=== PATIENT | male | born 1945 | race Asian ===

== ENCOUNTER 2017-09-29 10:43 | Emergency (ER) | payer MEDICARE ==
[~2017-09-29] VITALS: Ht 170.2 cm; Wt 77.1 kg
[~2017-09-29 10:43] MED LIST: ERLO100T PO; MINO100C2 PO; TAMS0.4C34 PO; URSO300C12 PO
--- NOTE | 2017-09-29 11:06 | NUR ---
PT IS IN ROOM #2B. DR SANDOVAL EVALUATED THE PT.
[2017-09-29 11:40] LABS: BASOPHILS % (AUTO) 0.1 % (0.0-2.0); EOSINOPHILS % (AUTO) 0.1 % (0.0-7.0); HEMATOCRIT 40.1 % (36.7-47.1); HEMOGLOBIN 13.6 g/dL (12.5-16.3); LYMPHOCYTES # (AUTO) 0.3 K/uL (20.0-40.0); LYMPHOCYTES % (AUTO) 5.3 % (20.5-51.5); MEAN CORPUSCULAR HEMOGLOBIN 30.1 uug (23.8-33.4); MEAN CORPUSCULAR HGB CONC 34 g/dL (32.5-36.3); MEAN CORPUSCULAR VOLUME 88.7 fL (73.0-96.2); MONOCYTES # (AUTO) 0.5 K/uL (2.0-10.0); MONOCYTES % (AUTO) 8.7 % (0.0-11.0); NEUTROPHILS # (AUTO) 4.8 K/uL (1.8-8.9); NEUTROPHILS % (AUTO) 85.8 % (38.5-71.5); PLATELET COUNT (AUTO) 145 K/uL (152-348); RED BLOOD CELL COUNT(AUTO) 4.53 MIL/uL (4.06-5.63); WHITE BLOOD COUNT (AUTO) 5.5 K/uL (3.6-10.2)
[2017-09-29] MEDS ORDERED: OSIM80TA PO (11:40)
[2017-09-29] MEDS ORDERED: DIPH25CA83 PO (11:40)
[2017-09-29] MEDS ORDERED: GUAI600T53 PO (11:40)
[2017-09-29] MEDS ORDERED: GABA-534 PO (11:40)
[2017-09-29] MEDS ORDERED: CYAN10007 IM (11:40)
[2017-09-29] MEDS ORDERED: ZOLP5TAB8 PO (11:40)
[2017-09-29] MEDS ORDERED: LEVO1CAP4 PO (11:40)
[2017-09-29] MEDS ORDERED: CIPR-262 PO (11:40)
[2017-09-29] MEDS ORDERED: METR500T PO (11:40)
[2017-09-29 11:45] LABS: POTASSIUM 3.9 mmol/L (3.5-5.1)
[2017-09-29 11:51] LABS: BILIRUBIN,TOTAL 1.1 mg/dL (0.2-1.0); TOTAL PROTEIN, SERUM 7.2 g/dL (6.4-8.2)
--- NOTE | 2017-09-29 14:59 | NUR ---
PT WAS D/C TO HOME. D/C INSTRUCTIONS GIVEN TO THE PT BY DR SANDOVAL.
[2017-09-29 15:00] VITALS: BP 132/81
== END 2017-09-29 15:01 | disposition home or self-care (01) ==
LOC: ER 10:43
DX: J90 Pleural effusion, not elsewhere classified (principal); J18.1 Lobar pneumonia, unspecified organism; E78.5 Hyperlipidemia, unspecified; Z88.0 Allergy status to penicillin; Z85.118 Personal history of other malignant neoplasm of bronchus and lung
CPT/HCPCS: 36415; 70030-TC; 83690; 85025; 85610; 93005; A4663

== ENCOUNTER 2018-08-18 04:37 | Inpatient (IN) | payer MEDICARE ==
--- NOTE | 2018-08-17 21:00 | NUR ---
Nursing Note: Pt resting comfortably in bed. Respirations even and unlabored on O2 at 2lpm. Pt Sinus Rhythm on manager monitoring. Nephrostomy tube draining clear yellow urine on left side and continues to drain coral red blood on right side. Pt complained of severe abdominal pain. KUB done and noted to be unremarkable. Pt has dissipated at this point. Bed in low and locked position at all times. Pt requested to use restroom. Encouraged pt to use bedside commode to conserve energy. Call light in reach at all times. Will continue to monitor. Addendum: 08/19/18 at 0342 by VON CHEUNG RN Noted in ERROR
[~2018-08-18] VITALS: Ht 177.8 cm; Wt 73.9 kg
[~2018-08-18 04:37] MED LIST changes: +CIPR-262 PO; +CYAN10007 IM; +DIPH25CA83 PO; -ERLO100T PO; +GABA-534 PO; +GUAI600T53 PO; +LEVO1CAP4 PO; +METR500T PO; -MINO100C2 PO; +OSIM80TA PO; -URSO300C12 PO; +ZOLP5TAB8 PO
--- NOTE | 2018-08-18 04:55 | NUR ---
Dr. Greene at bedside for MSE.
--- NOTE | 2018-08-18 05:00 | NUR ---
Xray at bedside.
[2018-08-18] MEDS ORDERED: CYAN50TA2 PO (05:27)
[2018-08-18] MEDS ORDERED: HYDR-3326 PO (05:27)
[2018-08-18] MEDS ORDERED: DOCU-141 PO (05:28)
[2018-08-18] MEDS ORDERED: GABA-532 PO (05:29)
[2018-08-18] MEDS ORDERED: METO25TA6 PO (05:30)
[2018-08-18] MEDS ORDERED: POLY17PO4 PO (05:32)
[2018-08-18] MEDS ORDERED: SENN-167 PO (05:33)
[2018-08-18] MEDS ORDERED: TAMS0.4C34 PO (05:33)
[2018-08-18] MEDS ORDERED: VANC750F IV (05:36)
[2018-08-18] MEDS ORDERED: ZOLP10TA6 PO (05:37)
[2018-08-18 05:42] LABS: BASOPHILS % (AUTO) 0.2 % (0.0-2.0); EOSINOPHILS # (AUTO) 0.1 K/uL (0.0-0.7); EOSINOPHILS % (AUTO) 0.7 % (0.0-7.0); HEMATOCRIT 30.9 % (36.7-47.1); HEMOGLOBIN 10.3 g/dL (12.5-16.3); LYMPHOCYTES # (AUTO) 0.2 K/uL (20.0-40.0); LYMPHOCYTES % (AUTO) 1.7 % (20.5-51.5); MEAN CORPUSCULAR HEMOGLOBIN 26.7 uug (23.8-33.4); MEAN CORPUSCULAR HGB CONC 33 g/dL (32.5-36.3); MEAN CORPUSCULAR VOLUME 80.3 fL (73.0-96.2); MONOCYTES # (AUTO) 1.1 K/uL (2.0-10.0); MONOCYTES % (AUTO) 8.4 % (0.0-11.0); NEUTROPHILS # (AUTO) 11.4 K/uL (1.8-8.9); PLATELET COUNT (AUTO) 158 K/uL (152-348); RED BLOOD CELL COUNT(AUTO) 3.85 MIL/uL (4.06-5.63); WHITE BLOOD COUNT (AUTO) 12.8 K/uL (3.6-10.2)
[2018-08-18 05:51] LABS: CREATININE 1.1 mg/dL (0.6-1.3); POTASSIUM 3.1 mmol/L (3.5-5.1)
[2018-08-18 06:04] LABS: BILIRUBIN,DIRECT 0.9 mg/dL (0.0-0.2); BILIRUBIN,TOTAL 1.3 mg/dL (0.2-1.0); TOTAL PROTEIN, SERUM 6.1 g/dL (6.4-8.2)
[2018-08-18] MEDS ORDERED: POTASSIUM CHLORIDE 50 ML ONE ×2 (06:07→06:34)
[2018-08-18] MEDS ORDERED: IV NORMAL SALINE 500 ML BAG IV ONE (06:15)
[2018-08-18] MEDS: POTASSIUM CHLORIDE 50 ML IV SCH ×2 (06:17→07:15)
[2018-08-18] MEDS ORDERED: ACETAMINOPHEN ES 500 MG TABLET ONE (06:21)
[2018-08-18] MEDS ORDERED: CEFTRIAXONE 1 G VIAL ONE (06:24)
[2018-08-18] MEDS ORDERED: MORPHINE SULFATE 2 MG/1 ML DISP.SYRIN IV PRN (06:30)
[2018-08-18] MEDS ORDERED: DOCUSATE SODIUM 100 MG CAPSULE PO PRN (06:30)
[2018-08-18] MEDS ORDERED: ACETAMINOPHEN 325 MG TABLET PO ONE (06:30)
[2018-08-18] MEDS ORDERED: DEXTROSE 50% 50 ML DISP.SYRIN IV PRN (06:30)
[2018-08-18] MEDS ORDERED: ENOXAPARIN SODIUM 60 MG/0.6 ML DISP.SYRIN SQ SCH (06:30)
[2018-08-18] MEDS ORDERED: MAG HYDROX/AL HYDROX/SIMETH 30 ML LIQUID UDC PO PRN (06:30)
[2018-08-18] MEDS ORDERED: AZITHROMYCIN IV 500 MG in IV DEXTROSE 5% 250 ML IV ONE (06:30)
[2018-08-18] MEDS ORDERED: CEFTRIAXONE 1 G in IV DEXTROSE 5% 50 ML IV ONE (06:30)
[2018-08-18] MEDS ORDERED: NITROGLYCERIN 0.4 MG/TAB BOTTLE SL PRN (06:30)
[2018-08-18] MEDS ORDERED: PIPERACILLIN SODIUM/TAZOBACTAM 3.375 G in IV DEXTROSE 5% 50 ML IV ONE (06:30)
[2018-08-18] MEDS ORDERED: ACETAMINOPHEN 325 MG TABLET PO PRN (06:30)
[2018-08-18] MEDS ORDERED: AZITHROMYCIN 500 MG VIAL IV ONE (06:35)
--- NOTE | 2018-08-18 07:12 | NUR ---
Report given to Anna CARD.
--- NOTE | 2018-08-18 07:23 | NUR ---
PATIENT IS AWAKE AND ALERT WITH NO NEW COMPLAINTS. ON CONTINUOUS CARDIAC MONITORING. HE IS AWARE OF PENDING ADMISSION TO HOSPITAL.
[2018-08-18] MEDS: BLOOD SUGAR DIAGNOSTIC 1 EACH STRIP VI SCH ×4 (07:30→20:13)
[2018-08-18 08:00] VITALS: BP 114/86
--- NOTE | 2018-08-18 08:00 | NUR ---
Pt received from ER. A&Ox4. Pt stable and nad noted upon admission. IV Potassium 20MEQ (x2 bags) completed in ER.
--- NOTE | 2018-08-18 08:01 | NUR ---
REPORT GIVEN TO MORELIA CARD.
--- NOTE | 2018-08-18 09:00 | NUR ---
Pt already eating breakfast and refused accucheck BS. Will recheck BS for 1130.
[2018-08-18] MEDS: ASPIRIN 325 MG TABLET PO SCH (09:06)
[2018-08-18] MEDS ORDERED: VANCOMYCIN IV 1 G in PREMIXED 0 EACH IV SCH (09:15)
[2018-08-18] MEDS: VANCOMYCIN IV 1 G in PREMIXED 0 EACH IV SCH (10:41)
--- NOTE | 2018-08-18 11:00 | NUR ---
Consent for right guided ultrasound thoracentesis signed by the pt. Pt alert and oriented during the signing of the consent and is aware of procedures to be done as explained by Dr. Gipson.
[2018-08-18] MEDS: INSULIN REGULAR, HUMAN 300 UNIT/3 ML VIAL SQ PRN (11:09)
[2018-08-18 11:48] VITALS: BP 113/72
--- NOTE | 2018-08-18 14:33 | NUR ---
Clinical pharmacy note-Vancomycin dosing per pharmacy Subjective: To start Vancomycin dosing on this patient for suspected infection(SOB, CXR +) Objective: BUN 19 Scr 1.1 WBC 12.8 Temp 97.9 Ht 177.8cm Wt 72.575kg Assessment/Plan: Will start Vancomycin 1 gram IV every 14 hrs (first dose today at 1000) and draw trough by 4th dose(not ordered yet) for expected trough around 16. Will monitor daily.
[2018-08-18] MEDS ORDERED: SENNOSIDES 1 TABLET PO SCH (15:00)
--- NOTE | 2018-08-18 15:35 | NUR ---
and US tech at the bedside for US right guided thoracentesis procedure.
[2018-08-18 16:00] VITALS: BP 113/78
--- NOTE | 2018-08-18 16:15 | NUR ---
US tech here at the bedside for 2D Echocardiogram.
[2018-08-18] MEDS: DOCUSATE SODIUM 100 MG CAPSULE PO SCH (16:33)
[2018-08-18] MEDS: ONDANSETRON 4 MG/2 ML VIAL IV PRN (17:12)
[2018-08-18] MEDS: HYDROCODONE/APAP 5-325MG TABLET PO PRN (18:43)
[2018-08-18 19:11] LABS: *BLOOD, URINE 3+ (NEGATIVE); *CLARITY,URINE CLOUDY (CLEAR); *COLOR,URINE RED (YELLOW); *KETONES,URINE NEGATIVE (NEGATIVE); LEUKOCYTE ESTERASE ,URINE 1+ (NEGATIVE); NITRITE, URINE NEGATIVE (NEGATIVE); UGLUCOSE NEGATIVE (NEGATIVE)
[2018-08-18 19:16] LABS: *BILIRUBIN,URIN 1+ (NEGATIVE); *PROTEIN,URINE 3+ (NEGATIVE)
[2018-08-18 19:19] LABS: BACTERIA,URINE NONE SEEN /HPF (NONE SEEN); RBC,URINE TNTC /HPF (0-3); SQUAMOUS EPITHELIAL CELL,UR FEW /HPF (NONE SEEN)
--- NOTE | 2018-08-18 19:30 | NUR ---
Nursing Note: Pt noted to have coral red blood coming from right side nephrostomy. Noted tubing in place. No complaints of pain at this time. Pt verbalized that since nephrostomies placed it has been occasionally draining blood. Pt seen by ID AUTO CAMP ATTENDANT. No new orders noted. Pt verbalizing pain. New order to obtain KUB by ID AUTO CAMP ATTENDANT.
[2018-08-18] MEDS: METOPROLOL TARTRATE 25 MG TABLET PO SCH (20:25)
[2018-08-18 20:26] VITALS: BP 112/76
[2018-08-18] MEDS: SIMVASTATIN 20 MG TABLET PO SCH (20:26)
--- NOTE | 2018-08-18 21:00 | NUR ---
Nursing Note: Pt resting comfortably in bed. Respirations even and unlabored on O2 at 2lpm. Pt Sinus Rhythm on nurse monitoring. Nephrostomy tube draining clear yellow urine on left side and continues to drain coral red blood on right side. Pt complained of severe abdominal pain. KUB done and noted to be unremarkable. Pt has dissipated at this point. Bed in low and locked position at all times. Pt requested to use restroom. Encouraged pt to use bedside commode to conserve energy. Call light in reach at all times. Will continue to monitor.
[2018-08-18] MEDS: AZTREONAM 1 G in IV NORMAL SALINE 50 ML IV SCH (22:30)
[2018-08-19] MEDS: VANCOMYCIN IV 1 G in PREMIXED 0 EACH IV SCH ×2 (00:19→14:24)
[2018-08-19 00:22] VITALS: BP 113/76
--- NOTE | 2018-08-19 03:49 | NUR ---
Nursing Note: Pt tolerating IV antibiotics well with no adverse reactions noted. Pt resting comfortably in bed. No shortness of breathe noted at this time. Will continue to monitor. Bed in low and locked position. Call light in reach.
[2018-08-19 04:00] VITALS: BP_SYST 104; BP_SYST 106; BP_DIAS 62; BP_DIAS 77
[2018-08-19] MEDS: AZTREONAM 1 G in IV NORMAL SALINE 50 ML IV SCH ×3 (05:09→22:24)
[2018-08-19] MEDS: MORPHINE SULFATE 4 MG/1 ML DISP.SYRIN IV PRN ×3 (05:12→21:33)
[2018-08-19 06:25] LABS: BASOPHILS % (AUTO) 0.2 % (0.0-2.0); EOSINOPHILS # (AUTO) 0.1 K/uL (0.0-0.7); HEMATOCRIT 28.1 % (36.7-47.1); HEMOGLOBIN 9.5 g/dL (12.5-16.3); LYMPHOCYTES # (AUTO) 0.2 K/uL (20.0-40.0); LYMPHOCYTES % (AUTO) 2.1 % (20.5-51.5); MEAN CORPUSCULAR HEMOGLOBIN 27.7 uug (23.8-33.4); MEAN CORPUSCULAR HGB CONC 34 g/dL (32.5-36.3); MEAN CORPUSCULAR VOLUME 81.8 fL (73.0-96.2); MONOCYTES # (AUTO) 0.8 K/uL (2.0-10.0); MONOCYTES % (AUTO) 7.1 % (0.0-11.0); NEUTROPHILS # (AUTO) 10.4 K/uL (1.8-8.9); NEUTROPHILS % (AUTO) 89.6 % (38.5-71.5); PLATELET COUNT (AUTO) 135 K/uL (152-348); RED BLOOD CELL COUNT(AUTO) 3.44 MIL/uL (4.06-5.63); WHITE BLOOD COUNT (AUTO) 11.6 K/uL (3.6-10.2)
[2018-08-19 06:59] LABS: THYROID STIMULATING HORMONE 2.681 mIU/mL (0.358-3.740)
[2018-08-19 07:07] LABS: CREATININE 0.9 mg/dL (0.6-1.3); MAGNESIUM 1.4 mg/dL (1.8-2.4); PHOSPHOROUS 2.9 mg/dL (2.5-4.9); POTASSIUM 3.3 mmol/L (3.5-5.1)
[2018-08-19] MEDS: BLOOD SUGAR DIAGNOSTIC 1 EACH STRIP VI SCH ×4 (07:39→21:07)
[2018-08-19 08:00] VITALS: BP 107/69
[2018-08-19] MEDS: GABAPENTIN 100 MG CAPSULE PO SCH (08:15)
[2018-08-19] MEDS: DOCUSATE SODIUM 100 MG CAPSULE PO SCH ×2 (08:15→17:37)
[2018-08-19] MEDS: ASPIRIN 325 MG TABLET PO SCH (08:15)
[2018-08-19] MEDS: MIRALAX 17 GM POWD.PACK PO SCH (08:15)
[2018-08-19] MEDS: TAMSULOSIN HCL 0.4 MG CAP.SR.24H PO SCH (08:15)
[2018-08-19] MEDS: METOPROLOL TARTRATE 25 MG TABLET PO SCH ×2 (08:19→21:00)
[2018-08-19] MEDS ORDERED: POTASSIUM CHLORIDE 20 MEQ TAB.PRT.SR PO ONE (09:15)
[2018-08-19] MEDS: POTASSIUM CHLORIDE 20 MEQ TAB.PRT.SR PO SCH ×2 (09:50→13:44)
[2018-08-19] MEDS: MAGNESIUM SULFATE/D5W 100 ML IV SCH ×2 (09:50→10:55)
[2018-08-19 11:00] VITALS: BP 100/68
[2018-08-19] MEDS: HYDROCODONE/APAP 5-325MG TABLET PO PRN ×2 (11:42→21:04)
--- NOTE | 2018-08-19 11:57 | NUR ---
Clinical pharmacy note-Vancomycin dosing per pharmacy Subjective: To continue Vancomycin dosing on this 72 yo male patient for suspected infection(SOB, CXR +) Objective: BUN 17 Scr 0.9 WBC 11.6 Temp 98.3 Ht 177.8cm Wt 72.575kg Assessment/Plan: Will continue same dose of Vancomycin 1 gram IV every 14 hrs for today even though srcr has decreased (expected trough level is still above 15 mcg/ml). 2nd dose today at 1400. Plan to draw trough before 5th dose ( ordered for 08/20 at 1730) for expected trough around 15.7 mcg/ml. Will follow the level for further dosing. monitor daily.
[2018-08-19] MEDS: INSULIN REGULAR, HUMAN 300 UNIT/3 ML VIAL SQ PRN (12:18)
[2018-08-19 15:06] VITALS: BP 103/75
--- NOTE | 2018-08-19 17:00 | NUR ---
NURSING NOTES Patient rested well in between care; c/o pain and addressed accordingly; seen by VENANCIO Berumen with new orders; antibiotics administered as ordered; potassium and Mg replaced as ordered; needs ID clearance prior to DC; continue to monitor; continue plan of care
[2018-08-19 19:21] VITALS: BP 101/68
--- NOTE | 2018-08-19 21:00 | NUR ---
Nursing Note: Pt resting comfortably in bed. Respirations even and unlabored on O2 at 2lpm. Pt Sinus Rhythm on hall monitor. Pt at bedside. Bedside report completed. Pt informed that he must be cleared by ID prior to discharged. Pt verbalized understanding. No complaints of pain or discomfort at this time. Bed in low and locked position at all times. Call light in reach at all times. Will continue to monitor.
[2018-08-19] MEDS: SIMVASTATIN 20 MG TABLET PO SCH (21:02)
[2018-08-19] MEDS: ONDANSETRON 4 MG/2 ML VIAL IV PRN (22:31)
[2018-08-20] MEDS ORDERED: ZOLPIDEM 5 MG TABLET PO PRN (01:00)
[2018-08-20] MEDS: HYDROCODONE/APAP 5-325MG TABLET PO PRN ×3 (01:16→17:42)
--- NOTE | 2018-08-20 01:29 | NUR ---
Nursing Note: Pt requested pain medication as well as medication to assist with sleep. Contacted MD and obtained order for Zolpidem 5mg. Administered pain and sleep medication. Medications appear to be effective. Pt continues to have periodic streaks of blood in urine draining out of right nephrostomy. No distress noted at this time. Bed in low and locked position. Call light in reach. Continue plan of care.
[2018-08-20 03:21] VITALS: BP 104/71
[2018-08-20] MEDS: VANCOMYCIN IV 1 G in PREMIXED 0 EACH IV SCH ×2 (04:55→17:07)
[2018-08-20] MEDS: AZTREONAM 1 G in IV NORMAL SALINE 50 ML IV SCH ×2 (06:18→14:32)
[2018-08-20 06:48] LABS: BASOPHILS % (AUTO) 0.3 % (0.0-2.0); EOSINOPHILS # (AUTO) 0.1 K/uL (0.0-0.7); EOSINOPHILS % (AUTO) 1.4 % (0.0-7.0); HEMATOCRIT 29.2 % (36.7-47.1); HEMOGLOBIN 9.8 g/dL (12.5-16.3); LYMPHOCYTES # (AUTO) 0.3 K/uL (20.0-40.0); LYMPHOCYTES % (AUTO) 3.2 % (20.5-51.5); MEAN CORPUSCULAR HEMOGLOBIN 27.2 uug (23.8-33.4); MEAN CORPUSCULAR HGB CONC 34 g/dL (32.5-36.3); MEAN CORPUSCULAR VOLUME 81.1 fL (73.0-96.2); MONOCYTES # (AUTO) 0.8 K/uL (2.0-10.0); MONOCYTES % (AUTO) 9.4 % (0.0-11.0); NEUTROPHILS # (AUTO) 7.7 K/uL (1.8-8.9); NEUTROPHILS % (AUTO) 85.7 % (38.5-71.5); PLATELET COUNT (AUTO) 150 K/uL (152-348); RED BLOOD CELL COUNT(AUTO) 3.59 MIL/uL (4.06-5.63)
[2018-08-20] MEDS: BLOOD SUGAR DIAGNOSTIC 1 EACH STRIP VI SCH ×3 (06:54→16:30)
[2018-08-20 06:55] LABS: CREATININE 0.9 mg/dL (0.6-1.3); MAGNESIUM 1.6 mg/dL (1.8-2.4); PHOSPHOROUS 2.8 mg/dL (2.5-4.9)
--- NOTE | 2018-08-20 07:52 | NUR ---
Awake, alert, oriented x 4. O2 at 2L/NC. Not in distress
[2018-08-20] MEDS: ASPIRIN 325 MG TABLET PO SCH (08:37)
[2018-08-20] MEDS: GABAPENTIN 100 MG CAPSULE PO SCH (08:37)
[2018-08-20] MEDS: DOCUSATE SODIUM 100 MG CAPSULE PO SCH ×2 (08:37→17:07)
[2018-08-20] MEDS: TAMSULOSIN HCL 0.4 MG CAP.SR.24H PO SCH (08:37)
[2018-08-20] MEDS: MIRALAX 17 GM POWD.PACK PO SCH (08:37)
[2018-08-20] MEDS: METOPROLOL TARTRATE 25 MG TABLET PO SCH (08:38)
--- NOTE | 2018-08-20 09:14 | NUR ---
Clinical pharmacy note-Vancomycin dosing per pharmacy Subjective: To continue Vancomycin dosing on this 72 yo male patient for suspected infection(SOB, CXR +) Objective: BUN 17 Scr 0.9 WBC 9.0 Temp 97.3 Ht 177.8cm Wt 72.575kg Assessment/Plan: Will continue same dose of Vancomycin 1 gram IV every 14 hrs for today. Plan to draw trough before 5th dose ( ordered for 08/20 at 1730). Pharmacy shall review the level & adjust the dose if needed. Will continue to follow.
[2018-08-20 12:00] VITALS: BP 95/65
[2018-08-20] MEDS: MAGNESIUM SULFATE/D5W 100 ML IV SCH ×2 (12:17→13:14)
--- NOTE | 2018-08-20 14:10 | NUR ---
Discharge order cleared by Veto HOBBS NP. With discharge order to home and to continue with previous home health with previous IV antibiotics. Coordinated with home health and to give pm dose of Vancomycin at 1700.
[2018-08-20 15:21] VITALS: BP 91/62
--- NOTE | 2018-08-20 19:03 | NUR ---
Vancomycin infusion finished. Went home per wheelchair in fair condition, not in distress, afebrile.
== END 2018-08-20 19:05 | disposition home health service (06) | DRG 180 ==
LOC: ER 04:40 → DOU 07:45 → TELE-TD 08:30 → TELE 13:50 → MED 08-19 20:02
PROVIDERS: ADMIT Registered Nurse
PROC: 0W993ZZ Drainage of Right Pleural Cavity, Percutaneous Approach (ICD-10-PCS; principal; 2018-08-18)
DX: C34.92 Malignant neoplasm of unspecified part of left bronchus or lung (principal); I21.A1 Myocardial infarction type 2; J96.21 Acute and chronic respiratory failure with hypoxia; J91.0 Malignant pleural effusion; N39.0 Urinary tract infection, site not specified; N17.9 Acute kidney failure, unspecified; C22.1 Intrahepatic bile duct carcinoma; I31.3 Pericardial effusion (noninflammatory); E78.5 Hyperlipidemia, unspecified; I10 Essential (primary) hypertension; E87.6 Hypokalemia; E88.09 Other disorders of plasma-protein metabolism, not elsewhere classified; N13.9 Obstructive and reflux uropathy, unspecified; Z92.3 Personal history of irradiation; Z90.49 Acquired absence of other specified parts of digestive tract; Z92.21 Personal history of antineoplastic chemotherapy; Z88.0 Allergy status to penicillin; Z93.6 Other artificial openings of urinary tract status; D64.9 Anemia, unspecified; Z99.81 Dependence on supplemental oxygen; Z85.05 Personal history of malignant neoplasm of liver
CPT/HCPCS: 32555; 36415; 70030-TC; 71045; 74018; 83605; 83615; 83735; 84100; 84155; 84443; 85025; 85730; 87040; 87070; 87086; 87205; 93005; 93307; 93880; A4663; A9150; J0456; J0696; J1815; J2270; J2405; J3370; J3475; J3480; J3490; J7040; J7050; J7060